=== PATIENT | female | born 1970 | race Caucasian/White ===

== ENCOUNTER 2022-01-10 07:42 | Outpatient (CLI) | payer OTHER, SELFPAY ==
--- NOTE | 2022-01-10 08:15 | CRLHL7_ITS ---
For Patients: As a result of the Century Cures Act, medical imaging exams and procedure reports are released immediately into your electronic medical record. You may view this report before your referring provider. If you have questions, please contact your health care provider. BILATERAL SCREENING MAMMOGRAM WITH COMPUTER-AIDED DETECTION AND TOMOSYNTHESIS TECHNIQUE: CC and MLO views were obtained. These mammographic images have been obtained using full-field digital technique. These mammographic images were interpreted with the benefit of computer-aided detection. Breast Tomosynthesis was used in this interpretation. COMPARISON FILM: 12/26/20, 11/30/19, 10/27/18 FINDINGS: The breasts are heterogeneously dense, which may obscure small masses IMPRESSION: There is no radiographic evidence for malignancy. ASSESSMENT: BI-RADS Category 2: Benign RECOMMENDATION: Routine screening mammogram in 1 year. A lay language report of this examination will be provided to the patient. Sha Gallo M.D. Diagnostic Radiologist [email or web address] GERALD/Dictated by: Sha Gallo MD @ 01/10/2022 10:29:00 AM (Electronically Signed)
== END 2022-01-10 07:43 | disposition home or self-care (01) ==
LOC: MAMMO 07:43
PROVIDERS: PCP Physician Assistant Medical; Visit Provider Physician Assistant Medical
DX: Z12.31 Encounter for screening mammogram for malignant neoplasm of breast (principal); R92.2 Inconclusive mammogram
CPT/HCPCS: 77063; 77067

== ENCOUNTER 2022-12-19 09:22 | Outpatient (CLI) | payer OTHER, SELFPAY ==
[2022-12-19 10:02] LABS: Hematocrit 45.4 % (33.0-51.0); Hemoglobin* 15.4 gm/dL (12.0-16.0); Mean Corpuscular HGB Conc 34 gm/dL (32-36); Mean Corpuscular Hemoglobin 31 pg (26-34); Mean Corpuscular Volume 90 fL (80-100); Platelet Count* 243 K/uL (140-440); Red Blood Count 5.03 m/uL (4.00-5.20); White Blood Count* 4.79 K/uL (4.50-11.00)
[2022-12-19 10:05] LABS: Slide Review Reflex Yes
[2022-12-19 11:36] LABS: Slide Review Acceptable Review (Acceptable)
[2022-12-19 12:19] LABS: Albumin* 4.6 g/dL (3.3-5.0)
[2022-12-19 12:20] LABS: Chloride* 102 mmol/L (96-114); Potassium* 4.1 mmol/L (3.6-5.1); Sodium* 138 mmol/L (135-149)
[2022-12-19 12:22] LABS: Aspartate Amino Transferase* 58 U/L (12-35); Bilirubin Total* 0.7 mg/dL (0.1-1.5); Blood Urea Nitrogen* 11 mg/dL (7-30); Carbon Dioxide* 30 mmol/L (20-32); Cholesterol* 196 mg/dL (90-199); Creatinine* 0.8 mg/dL (0.5-1.5); Estimated Glomerular Filt Rate 88 ml/min
[2022-12-19 12:23] LABS: Alanine Aminotransferase* 34 U/L (4-35); Alkaline Phosphatase* 56 U/L (40-150); Calcium* 9.4 mg/dL (8.4-10.6); Glucose* 99 mg/dL (60-115); HDL Cholesterol* 40 mg/dL (>=50); LDL Cholesterol Calculated 133 mg/dL (<100); Triglycerides* 115 mg/dL (40-149)
== END 2022-12-19 09:23 | disposition home or self-care (01) ==
PROVIDERS: PCP Physician Assistant Medical; Visit Provider Physician Assistant Medical
DX: Z00.00 Encounter for general adult medical examination without abnormal findings (principal); E78.5 Hyperlipidemia, unspecified; Z13.29 Encounter for screening for other suspected endocrine disorder
CPT/HCPCS: 80053; 80061; 84443; 85027

== ENCOUNTER 2023-01-15 10:36 | Outpatient (CLI) | payer OTHER, SELFPAY ==
--- NOTE | 2023-01-15 10:45 | CRLHL7_ITS ---
For Patients: As a result of the Cures Act, medical imaging exams and procedure reports are released immediately into your electronic medical record. You may view this report before your referring provider. If you have questions, please contact your health care provider. BILATERAL SCREENING MAMMOGRAM WITH COMPUTER-AIDED DETECTION AND TOMOSYNTHESIS TECHNIQUE: CC and MLO views were obtained. These mammographic images have been obtained using full-field digital technique. These mammographic images were interpreted with the benefit of computer-aided detection. Breast Tomosynthesis was used in this interpretation. COMPARISON FILM: 01/10/22, 12/26/20, 11/30/19. FINDINGS: There are scattered areas of fibroglandular density IMPRESSION: There is no radiographic evidence for malignancy. ASSESSMENT: BI-RADS Category 1: Negative RECOMMENDATION: Routine screening mammogram in 1 year. A lay language report of this examination will be provided to the patient. Sha Gallo M.D. Diagnostic Radiologist [email or web address] KATE/[email or web address] Transcribed: 3:[address]/Dictated by: Sha Gallo MD @ 01/15/2023 1:28:00 PM (Electronically Signed)
== END 2023-01-15 10:37 | disposition home or self-care (01) ==
PROVIDERS: PCP Physician Assistant Medical; Visit Provider Physician Assistant Medical
DX: Z12.31 Encounter for screening mammogram for malignant neoplasm of breast (principal)
CPT/HCPCS: 77063; 77067

== ENCOUNTER 2023-08-06 08:46 | Outpatient (CLI) | payer OTHER, SELFPAY | END 2023-08-06 08:47 | disposition home or self-care (01) | PROVIDERS: PCP Physician Assistant Medical; Visit Provider Physician Assistant Medical | DX: I10 Essential (primary) hypertension (principal); R53.83 Other fatigue; R25.2 Cramp and spasm; E78.5 Hyperlipidemia, unspecified | CPT/HCPCS: 82306; 82607; 82728; 84443 ==

== ENCOUNTER 2023-10-10 11:15 | Outpatient (RCR) | payer OTHER, SELFPAY | END 2024-02-07 23:59 | disposition home or self-care (01) | PROVIDERS: PCP Physician Assistant Medical; Visit Provider Physician Assistant Medical | DX: M54.2 Cervicalgia (principal); G89.29 Other chronic pain; Z51.89 Encounter for other specified aftercare | CPT/HCPCS: 97110; 97140; 97162 ==

== ENCOUNTER 2023-12-22 10:36 | Outpatient (CLI) | payer OTHER, SELFPAY | END 2023-12-22 10:37 | disposition home or self-care (01) | LOC: NFLDREF 12-23 19:42 | PROVIDERS: PCP Physician Assistant Medical; Referring Provider Physician Assistant Medical; Visit Provider Physician Assistant Medical | DX: Z00.00 Encounter for general adult medical examination without abnormal findings (principal); I10 Essential (primary) hypertension; E78.5 Hyperlipidemia, unspecified; E78.2 Mixed hyperlipidemia; L60.0 Ingrowing nail | CPT/HCPCS: 80053; 80061 ==

== ENCOUNTER 2024-02-06 14:26 | Outpatient (CLI) | payer OTHER, SELFPAY ==
--- NOTE | 2024-02-06 14:40 | CRLHL7_ITS ---
For Patients: As a result of the Century Cures Act, medical imaging exams and procedure reports are released immediately into your electronic medical record. You may view this report before your referring provider. If you have questions, please contact your health care provider. BILATERAL DIGITAL SCREENING MAMMOGRAM WITH COMPUTER-AIDED DETECTION AND TOMOSYNTHESIS CLINICAL HISTORY: Routine screening exam. COMPARISON: 01/15/2023, 01/10/2022, 12/26/2020, 11/30/2019. TECHNIQUE: Digital mammogram in CC and MLO projections including computer-aided detection (CAD). Tomosynthesis was used in this interpretation. BREAST COMPOSITION: There are scattered areas of fibroglandular density. FINDINGS: RIGHT Breast: Focal asymmetric density upper outer quadrant, 10 o`clock, 6 cm from the nipple. LEFT Breast: No suspicious findings. IMPRESSION: RIGHT breast asymmetry/mass. RECOMMENDATIONS: Additional mammographic views of the RIGHT breast including 3D spot compression CC/MLO. RIGHT breast ultrasound may also be required. The [facility] will contact the patient for follow-up. A lay language report of this examination will be provided to the patient. BI-RADS Category 0: Incomplete: Need Additional Imaging Evaluation and/or Prior Mammograms for Comparison Dictated by Sha Gallo MD @ 02/10/2024 8:22:15 AM KENYA/yecenia DW/Dictated by: Sha Gallo MD @ 02/10/2024 8:22:00 AM (Electronically Signed)
== END 2024-02-06 14:27 | disposition home or self-care (01) ==
LOC: MAMMO 14:27
PROVIDERS: PCP Physician Assistant Medical; Visit Provider Physician Assistant Medical
DX: Z12.31 Encounter for screening mammogram for malignant neoplasm of breast (principal); N63.10 Unspecified lump in the right breast, unspecified quadrant
CPT/HCPCS: 77063; 77067

== ENCOUNTER 2024-02-18 07:30 | Outpatient (CLI) | payer OTHER, SELFPAY ==
--- NOTE | 2024-02-18 07:45 | CRLHL7_ITS ---
For Patients: As a result of the Cures Act, medical imaging exams and procedure reports are released immediately into your electronic medical record. You may view this report before your referring provider. If you have questions, please contact your health care provider. RIGHT DIAGNOSTIC MAMMOGRAM WITH COMPUTER-AIDED DETECTION AND TOMOSYNTHESIS RIGHT BREAST ULTRASOUND CLINICAL HISTORY: RIGHT breast mass/asymmetry. COMPARISON: 02/06/2024, 01/15/2023, 01/10/2022, 12/26/2020. TECHNIQUE: Digital RIGHT mammogram in two projections. Computer-aided detection and tomosynthesis were used in this interpretation. Real-time ultrasound imaging of RIGHT breast with imaging documentation. BREAST COMPOSITION: There are scattered areas of fibroglandular density. FINDINGS: 3D spot compression CC/MLO RIGHT breast mammogram images submitted. Decreased conspicuity of previously noted asymmetric density. No architectural distortion. No adenopathy or suspicious calcifications. Targeted RIGHT breast ultrasound performed at 10 o`clock 5 cm from the nipple. Normal fibroglandular tissue is present. No fibrocystic change or solid mass. IMPRESSION: Normal fibroglandular tissue. No suspicious findings. No evidence of malignancy. RECOMMENDATIONS: Annual BILATERAL screening mammography. BI-RADS Category 2: Benign Results and recommendations discussed with the patient. A lay language report of this examination will be provided to the patient. Dictated by Sha Gallo MD @ 02/18/2024 12:19:19 PM /sp SP/Dictated by: Sha Gallo MD @ 02/18/2024 12:19:00 PM (Electronically Signed)
--- NOTE | 2024-02-18 08:15 | CRLHL7_ITS ---
For Patients: As a result of the Century Cures Act, medical imaging exams and procedure reports are released immediately into your electronic medical record. You may view this report before your referring provider. If you have questions, please contact your health care provider. PLEASE SEE RIGHT BREAST DIAGNOSTIC MAMMOGRAM PERFORMED SAME DAY. CRL:sp SP/Dictated by: Sha Gallo MD @ 02/18/2024 12:19:00 PM (Electronically Signed)
== END 2024-02-18 07:31 | disposition home or self-care (01) ==
LOC: MAMMO 07:30
PROVIDERS: PCP Physician Assistant Medical; Visit Provider Physician Assistant Medical
DX: N63.10 Unspecified lump in the right breast, unspecified quadrant (principal); R92.8 Other abnormal and inconclusive findings on diagnostic imaging of breast
CPT/HCPCS: 76642; 77065; G0279

== ENCOUNTER 2024-10-14 14:47 | Outpatient (CLI) | payer OTHER, SELFPAY ==
--- NOTE | 2024-10-14 15:00 | CRLHL7_ITS ---
For Patients: As a result of the Century Cures Act, medical imaging exams and procedure reports are released immediately into your electronic medical record. You may view this report before your referring provider. If you have questions, please contact your health care provider. Indication: LT LUNG NODULE FROM XRAYS Technique: Noncontrast CT chest Please note that all CT scans at this facility use dose modulation, iterative reconstruction, and/or weight-based dosing when appropriate to reduce radiation dose to as low as reasonably achievable. Comparison: Chest x-rays 10/05/2024 and 09/05/2024 Findings: Calcified subcarinal lymph nodes. Calcified nodule right lower lobe. Incidental cyst within the liver measures 3.4 cm. No enlarged lymph nodes. Visualized thyroid normal. Mild residual thymic tissue in the anterior mediastinum. Masslike opacification within the lingula measures up to 3.4 cm. No pleural effusion. No fracture. Postop changes lower cervical spine. Impression: Macro lobular masslike opacification in the lingula measuring up to 3.4 cm, probably not significantly changed compared to the prior 2 exams. This is indeterminate by imaging at this time. Would recommend CT-PET for further evaluation and would consider CT-guided percutaneous biopsy following the CT-PET if no lymph nodes are hypermetabolic. Please note that all CT scans at this facility use dose modulation, iterative reconstruction, and/or weight-based dosing when appropriate to reduce radiation dose to as low as reasonably achievable. Dictated by Sha Gallo MD @ 10/15/2024 3:31:37 PM (Electronically Signed)
== END 2024-10-14 14:48 | disposition home or self-care (01) ==
LOC: CT 14:48
PROVIDERS: PCP Physician Assistant Medical; Visit Provider Physician Assistant Medical
DX: R91.1 Solitary pulmonary nodule (principal)
CPT/HCPCS: 71250

== ENCOUNTER 2024-10-27 14:58 | Outpatient (CLI) | payer OTHER, SELFPAY | END 2024-10-27 14:59 | disposition home or self-care (01) | LOC: LKVREF 15:00 | PROVIDERS: PCP Physician Assistant Medical; Visit Provider Emergency Medicine | DX: R73.03 Prediabetes (principal) | CPT/HCPCS: 80048 ==

== ENCOUNTER 2025-01-04 07:43 | Outpatient (CLI) | payer OTHER, SELFPAY | END 2025-01-04 07:44 | disposition home or self-care (01) | LOC: NFLDREF 01-05 19:44 | PROVIDERS: PCP Physician Assistant Medical; Referring Provider Physician Assistant Medical; Visit Provider Physician Assistant Medical | DX: I10 Essential (primary) hypertension (principal); E78.2 Mixed hyperlipidemia; R73.03 Prediabetes; F41.9 Anxiety disorder, unspecified; Z79.890 Hormone replacement therapy | CPT/HCPCS: 80053; 80061; 84443 ==

== ENCOUNTER 2025-03-15 14:51 | Outpatient (CLI) | payer OTHER, SELFPAY ==
--- NOTE | 2025-03-15 15:00 | CRLHL7_ITS ---
For Patients: As a result of the Century Cures Act, medical imaging exams and procedure reports are released immediately into your electronic medical record. You may view this report before your referring provider. If you have questions, please contact your health care provider. INDICATION: BILATERAL SCREENING MAMMOGRAM, ASYMPTOMATIC 54 Y/O FEMALE COMPARISON: 02/18/2024, 01/15/2023, 01/10/2022 TECHNIQUE: Digital mammogram in CC and MLO projections including computer-aided detection (CAD) and tomosynthesis. BREAST COMPOSITION: There are scattered areas of fibroglandular density. FINDINGS: No suspicious findings. ASSESSMENT: BI-RADS 1 Negative RECOMMENDATION: Annual screening mammogram. A lay language report of this examination will be provided to the patient. Dictated by: Sha Gallo MD @ 03/16/2025 09:10:32 (Electronically Signed)
== END 2025-03-15 14:52 | disposition home or self-care (01) ==
LOC: MAMMO 14:51
PROVIDERS: PCP Physician Assistant Medical; Visit Provider Physician Assistant Medical
DX: Z12.31 Encounter for screening mammogram for malignant neoplasm of breast (principal)
CPT/HCPCS: 77063; 77067